=== PATIENT | male | born 1985 | race Two or more races ===

== ENCOUNTER 2017-08-30 12:27 | Emergency (ER) | payer MEDICAID ==
[~2017-08-30] VITALS: Ht 165.1 cm; Wt 81.6 kg
--- NOTE | 2017-08-30 14:27 | Emergency Room Report ---
History of Present Illness General Chief Complaint: Skin Rash/Abscess Source: Patient Present Illness HPI 31-year-old male presents to the emergency department complaining of 6/10 in severity localized pain to the left great toe times one week. Patient reports progressive swelling, erythema and tenderness. Patient reports history of ingrown toenail in the past and his help to remove some of the nail previously. Patient denies trauma or fall. Patient denies fevers or chills. Denies numbness tingling or loss of sensation or gross motor movements of the extremities, incontinence of bowel or bladder. Denies CP, Palpitations, LOC, AMS , dizziness, Changes in Vision, Sensation, paresthesias, or a sudden severe headache. Allergies: Coded Allergies: No Known Allergies (Unverified , 08/30/17) Patient History Past Medical History: see triage record Past Surgical History: none Pertinent Family History: none Immunizations: UTD Reviewed Nursing Documentation: PMH: Agreed, PSxH: Agreed Nursing Documentation-PMH Past Medical History: No Stated History Review of Systems All Other Systems: negative except mentioned in HPI Physical Exam Vital Signs Date Time Temp Pulse Resp B/P (MAP) Pulse Ox O2 Delivery O2 Flow Rate FiO2 08/30/17 12:37 98.2 90 16 140/83 97 Room Air Sp02 EP Interpretation: reviewed, normal General Appearance: no apparent distress, alert, GCS 15, non-toxic Head: normocephalic, atraumatic Eyes: bilateral eye normal inspection, bilateral eye PERRL ENT: hearing grossly normal, normal voice Neck: full range of motion Respiratory: lungs clear, normal breath sounds, speaking full sentences Cardiovascular #1: regular rate, rhythm, normal capillary refill Musculoskeletal: back normal, gait/station normal, normal range of motion, tender - TTp to the medial aspect of the toe nail of the left great toe, swelling noted, erythema, and obvious ingrown edge of toe nail. Neurologic: alert, oriented x3, responsive, motor strength/tone normal, sensory intact, normal gait, speech normal Skin: normal color, no rash, warm/dry, well hydrated, other - TTp to the medial aspect of the toe nail of the left great toe, swelling noted, erythema, and obvious ingrown edge of toe nail. Procedures Additional Procedure Procedure Narrative Patient gave verbal consent for toenail removal of the left great toe. Patient is anesthetized via digital block of the left great toe using approximately 6 mL of 1% lidocaine without epinephrine. -The toenail and toe is cleaned and prepped with Betadine solution. -Good anesthetic result is obtained - Wedge Resection: -The medial edge of the nail is freed from nail bed via blunt dissection using hemostats and the dissected section is removed after cutting with scissors -Direct pressure with sterile gauze was used to attain hemostasis. -Bacitracin is applied. -Sterile dressing is applied -This patient tolerated the procedure well there were no complications Medical Decision Making PA Attestation Dr. Em is my supervising Physician whom patient management has been discussed with. Diagnostic Impression: Primary Impression: Ingrown left greater toenail ER Course 31-year-old male presents to the emergency department complaining of 6/10 in severity localized pain to the left great toe times one week. Patient reports progressive swelling, erythema and tenderness. Patient reports history of ingrown toenail in the past and his help to remove some of the nail previously. Patient denies trauma or fall. Patient denies fevers or chills. Denies numbness tingling or loss of sensation or gross motor movements of the extremities, incontinence of bowel or bladder. Denies CP, Palpitations, LOC, AMS , dizziness, Changes in Vision, Sensation, paresthesias, or a sudden severe headache. Ddx considered but are not limited to cellulitis, paronychia, eponychia, ingrown toe nail, fracture, d/L, gout Vital signs: are WNL, pt. is afebrile H&PE are most consistent with left great ingrown toenail with mild infection. ORDERS: none required at this time, the diagnosis is clinical ED INTERVENTIONS: -Tylenol PO - Wedge resection of ingrown toenail performed- see procedure note. - bacitracin, petrolateum gauze and sterile guaze was then applied afterward. - will d/c pt. with PO abx. DISCHARGE: At this time pt. is stable for d/c to home. Will provide printed patient care instructions, and any necessary prescriptions. Care plan and follow up instructions have been discussed with the patient prior to discharge. Last Vital Signs Date Time Temp Pulse Resp B/P (MAP) Pulse Ox O2 Delivery O2 Flow Rate FiO2 08/30/17 12:37 98.2 90 16 140/83 97 Room Air Disposition: HOME, SELF-CARE Condition: Stable Scripts Bacitracin/Polymyxin B Sulfate (BACITRACIN-POLYMYXIN OINTMENT) 28.35 Gm Oint...g. 1 APPLIC TP BID, #28.3 GM Prov: Blanca Henderson 08/30/17 Clindamycin Hcl (CLINDAMYCIN HCL) 300 Mg Capsule 300 MG ORAL FOUR TIMES A DAY for 7 Days, #28 CAP Prov: Blanca Henedrson 08/30/17 Ibuprofen* (MOTRIN*) 600 Mg Tablet 600 MG ORAL THREE TIMES A DAY, #30 TAB 0 Refills Prov: Blanca Henderson 08/30/17 Hydrocodone Bit/Acetaminophen 5-325* (NORCO 5-325*) 1 Each Tablet 1 TAB ORAL Q6H Y for For Pain, #6 TAB 0 Refills Prov: Blanca Henderson 08/30/17 Referrals: RUBÉN MCWILLIAMS,REFERRING (PCP) Patient Instructions: Ingrown Toenail Additional Instructions: Take medications as directed. Follow up with a Primary Care Provider in 3-5 days, even if your symptoms have resolved. --Please review list of primary care clinics, if you do not already have a primary care provider Return sooner to ED if new symptoms occur, or current symptoms become worse. - Please note that this Emergency Department Report was dictated using [employer] administrative [employer] technology software, occasionally this can lead to erroneous entry secondary to interpretation by the dictation equipment. Blanca Henderson Aug 30, 2017 14:27
[2017-08-30] MEDS ORDERED: NORCO 5-325 TA1 EACH ORAL (14:28)
[2017-08-30] MEDS ORDERED: IBUPROFEN600 MG ORAL (14:28)
[2017-08-30] MEDS ORDERED: BACITRACIN-P28.35 GM TP (14:29)
[2017-08-30] MEDS ORDERED: CLINDAMYCIN HC300 MG ORAL (14:29)
[2017-08-30] MEDS ORDERED: Bacitracin Oint UD TOPIC ONE (14:30)
[2017-08-30 14:48] VITALS: BP 133/78
== END 2017-08-30 14:48 | disposition home or self-care (01) ==
LOC: EMR 13:31
DX: L60.0 Ingrowing nail (principal)
CPT/HCPCS: 11765; 99283; Z7502

== ENCOUNTER 2018-04-19 11:49 | Emergency (ER) | payer MEDICAID ==
[~2018-04-19] VITALS: Ht 165.1 cm; Wt 72.6 kg
[~2018-04-19 11:49] MED LIST: BACITRACIN-P28.35 GM TP; CLINDAMYCIN HC300 MG ORAL; IBUPROFEN600 MG ORAL; NORCO 5-325 TA1 EACH ORAL
[2018-04-19 11:54] VITALS: BP 134/77
[2018-04-19] MEDS ORDERED: Lidocaine 1% Plain 30 ml INJ ONE (12:15)
[2018-04-19] MEDS ORDERED: Bacitracin Oint UD TOPIC ONE (12:15)
--- NOTE | 2018-04-19 12:23 | Emergency Room Report ---
History of Present Illness General Chief Complaint: Pain Source: Patient (Anderson Martínez) Present Illness HPI 32-year-old male patient presents ER complaining of left big toe pain for the past few weeks. Patient reports "I have an ingrown toenail". Patient reports a history of similar symptoms in the past, previously treated at [facility] [place]. Reports has not seen his doctor or medical policy specialist since that time. Denies other acute symptoms. Denies fever, chest pain, shortness of breath. denies history of injury or trauma. (Anderson Martínez) Allergies: Coded Allergies: No Known Allergies (Unverified , 08/30/17) Patient History Past Medical History: see triage record Reviewed Nursing Documentation: PMH: Agreed; PSxH: Agreed (Anderson Martínez) Nursing Documentation-PMH Past Medical History: No Stated History (Anderson Martínez) Review of Systems All Other Systems: negative except mentioned in HPI (Anderson Martínez) Physical Exam Vital Signs Date Time Temp Pulse Resp B/P (MAP) Pulse Ox O2 Delivery O2 Flow Rate FiO2 04/19/18 11:54 98.2 90 18 134/77 95 Room Air 98.2 Sp02 EP Interpretation: reviewed, normal General Appearance: well appearing, no apparent distress, alert, GCS 15, non- toxic Head: normocephalic, atraumatic Eyes: bilateral eye normal inspection, bilateral eye PERRL ENT: hearing grossly normal, normal pharynx, no angioedema, normal voice, uvula midline, moist mucus membranes Neck: full range of motion Respiratory: lungs clear, normal breath sounds, no rhonchi, no respiratory distress, no accessory muscle use, no wheezing, speaking full sentences Cardiovascular #1: regular rate, rhythm, no edema Cardiovascular #2: 2+ dorsalis pedis (R), 2+ dorsalis pedis (L) Musculoskeletal: back normal, digits/nails normal, gait/station normal, normal range of motion, non-tender, tender - medial aspect of left big toe, tender at medial border of the nail, swelling and erythema noted, ingornw nail visualized Neurologic: alert, oriented x3, responsive, motor strength/tone normal, sensory intact Psychiatric: mood/affect normal Skin: other - left big toe: ingrown toenail medial border, erythema and edema at lateral border of toe, no drainage (Anderson Martínez) Procedures Additional Procedure Procedure Narrative Ingrown toenail. Obtained verbal and written consent for procedure. toenail cleaned and prepped with Betadine solution and normal saline. Digital block performed using 5ml 1% lidocaine without epi. After achieving appropriate anesthesia, removed medial 1/3 of toenail using forceps. Toe was then flushed with copious amounts of saline, bacitracin, xeroform, gauze and tape were applied. Patient tolerated procedure well without complication WBAT with post-op shoe. (Anderson Martínez) Medical Decision Making PA Attestation Dr. Garcia is my supervising Physician whom patient management has been discussed with. (Anderson Martínez) PA Attestation I evaluated patient alongside Anderson Martínez PA-C. I agreed with plan for digital block and removal of a portion of the nail. Also recommended oral antibiotics for superimposed infection. (NESTOR GARCIA) Diagnostic Impression: Primary Impression: Ingrown left big toenail ER Course Pt. presents to the ED c/o ingrown toenail. Ddx considered but are not limited to ingrown toenail, nail avulsion, paronychia , felon, cellulitis, tinea magnum. Vital signs: are WNL, pt. is afebrile ER COURSE: Physical exam shows:medial aspect of left big toe, tender at medial border of the nail, swelling and erythema noted, ingrown nail visualized See procedure note for partial toe nail removal. Informed patient can wash it tomorrow, but do not soak in water. Apply topical abx and redress wound. Followup with associate professor of geology/PCP in 1-2 weeks, provided with contact information for associate professor of geology, contact to schedule appt. Wound check in 2-3 days. ER precautions given. DISCHARGE: Rx provided for [place] Rx provided for Bacitracin Rx provided for [place], CURES reviewed. SE drowsiness, do not take prior to drinking, driving, operating heavy machinery. At this time pt is stable for d/c to home. Patient is resting comfortably, in no acute distress, nontoxic appearing, talking without difficulty. Patient to take medications as instructed Will provide with patient care instructions and any necessary prescriptions. Care plan and follow-up instructions provided. Patient instructed to follow-up with primary care provider in 3 - 5 days. Patient questions asked and answered. Patient reports understanding and agreement to treatment plan. ER precautions given. Patient instructed to return to ER immediately for any new or worsening of symptoms including but not limited to increasing SOB, persistent fever, chest pain, intractable vomiting. - Please note that this Emergency Department Report was dictated using [employer]istant professor [employer] technology software, occasionally this can lead to erroneous entry secondary to interpretation by the dictation equipment. (Anderson Martínez) Last Vital Signs Date Time Temp Pulse Resp B/P (MAP) Pulse Ox O2 Delivery O2 Flow Rate FiO2 04/19/18 11:54 98.2 90 18 134/77 95 Room Air 98.2 (Anderson Martínez) Disposition: HOME, SELF-CARE Condition: Stable Scripts Hydrocodone Bit/Acetaminophen 5-325* (NORCO 5-325*) 1 Each Tablet 1 TAB ORAL Q6H PRN for For Pain, #6 TAB 0 Refills Prov: Anderson Martínez 04/19/18 Trimethoprim/Sulfamethoxazole 160/800* (BACTRIM DS TABLET*) 1 Each Tablet 1 TAB ORAL TWICE A DAY for 7 Days, TAB Prov: Anderson Martínez 04/19/18 Bacitracin/Polymyxin B Sulfate (BACITRACIN-POLYMYXIN OINTMENT) 28.35 Gm Oint...g. 1 APPLIC TP BID, #28 GM Prov: Anderson Martínez 04/19/18 Patient Instructions: Ingrown Toenail Additional Instructions: Followup with primary care provider in 2-3 days for wound check. Followup with associate professor of geology in 1 week. Call to schedule appointment, contact information provided. Take medications as directed. SE drowsiness, do not take prior to drinking, driving or operating heavy machinery. Patient questions asked and answered. ER precautions given, patient instructed to return to ER immediately for any new or worsening of symptoms. Anderson Martínez Apr 19, 2018 12:23 NESTOR GARCIA Apr 19, 2018 16:01
[2018-04-19] MEDS ORDERED: NORCO 5-325 TA1 EACH ORAL (13:13)
[2018-04-19] MEDS ORDERED: BACITRACIN-P28.35 GM TP (13:13)
[2018-04-19] MEDS ORDERED: BACTRIM DS TAB1 EAC1 ORAL (13:13)
[2018-04-19 13:29] VITALS: BP 137/93
== END 2018-04-19 13:35 | disposition home or self-care (01) ==
LOC: EMR 13:13
DX: L60.0 Ingrowing nail (principal)
CPT/HCPCS: 11730; 99283; J2001; Z7502